=== PATIENT | male | born 1985 | race Hispanic/Latino ===

== ENCOUNTER 2022-04-13 14:52 | Emergency (ER) | payer SELFPAY ==
[2022-04-13 15:18] LABS: Absolute Lymphocytes (CBC) 1.2 K/uL (0.7-4.9); Lymphocytes % 16.4 % (15.3-44.8); MCV 87.4 fL (80-100); MPV 9.2 fL (7.6-11.3); RBC Red Blood Cell Count 4.57 M/uL (4.33-5.43)
--- NOTE | 2022-04-13 15:18 | RAD REPORT ---
EXAM DESCRIPTION: CT - CTHCSPWOC - 04/13/2022 3:08 pm CLINICAL HISTORY: Trauma, head and neck injury. syncope vs seizure, head injury COMPARISON: No comparisons TECHNIQUE: Axial 5 mm thick images of the head were obtained. Axial 2 mm thick images of the cervical spine were obtained with sagittal and coronal reconstruction images generated and reviewed. All CT scans are performed using dose optimization technique as appropriate and may include automated exposure control or mA/KV adjustment according to patient size. FINDINGS: CT HEAD WITHOUT CONTRAST: No acute hemorrhage, hydrocephalus or extra-axial collection is identified.No areas of brain edema or midline shift. The paranasal sinuses and mastoids are clear.The calvarium is intact. CT CERVICAL SPINE WITHOUT CONTRAST: No fracture or subluxation.No prevertebral soft tissues swelling is identified. IMPRESSION: No acute intracranial or cervical spine findings.
[2022-04-13 15:29] LABS: Protime INR 1.12
[2022-04-13 15:48] LABS: Albumin 3.7 g/dL (3.4-5.0); Bilirubin Direct 0.1 mg/dL (0-0.2); Bilirubin Total 0.6 mg/dL (0.2-1.0); Magnesium 2.3 mg/dL (1.8-2.4); Potassium 3.5 mmol/L (3.5-5.1); Protein, Total 7.1 g/dL (6.4-8.2)
--- NOTE | 2022-04-13 17:35 | EDPHYS ---
Physician Documentation [facility] Name: Henry Herman Age: 36 yrs Sex: Male : 1985 Arrival Date: 04/13/2022 Time: 14:53 Bed 3 Private MD: ED Physician Enzo Adame HPI: 04/13 15:25 This 36 yrs old Male presents to ER via EMS with complaints of Syncope - rn possible seizure. 15:25 The patient has experienced syncope, became unresponsive. Onset: The symptoms/episode rn began/occurred just prior to arrival. Context: the episode(s) was witnessed, by co-worker(s), occurred at work, occurred while the patient was standing, Just prior to the episode the patient experienced dizziness. Associated injury: Head/face: laceration, pain. Historical: - Allergies: 14:57 No Known Allergies; ll1 - PMHx: 14:57 None; ll1 - PSHx: 14:57 None; ll1 - Immunization history:: Client reports receiving the 2nd dose of the Covid vaccine, Last tetanus immunization: up to date. - Social history:: Smoking status: Patient denies any tobacco usage or history of. - Family history:: not pertinent. - Hospitalizations: : No recent hospitalization is reported. ROS: 15:27 Constitutional: Negative for fever, chills, and weight loss, Eyes: Negative for injury, rn pain, redness, and discharge, Neck: Negative for injury, pain, and swelling, Cardiovascular: Negative for chest pain, palpitations, and edema, Respiratory: Negative for shortness of breath, cough, wheezing, and pleuritic chest pain, Abdomen/GI: Negative for abdominal pain, nausea, vomiting, diarrhea, and constipation, Back: Negative for injury and pain, MS/Extremity: Negative for injury and deformity, Skin: + laceration to scalp Neuro: Negative for headache, weakness, numbness, tingling Exam: 15:27 Constitutional: This is a well developed, well nourished patient who is awake, alert, rn and in no acute distress. Head/Face: + 3 cm superficial laceration and hematoma right posterior parietal region of scalp Eyes: Pupils equal round and reactive to light, extra-ocular motions intact. Lids and lashes normal. Conjunctiva and sclera are non-icteric and not injected. Cornea within normal limits. Periorbital areas with no swelling, redness, or edema. ENT: NO oral trauma or tongue injury Neck: NO midline cervical tenderness Chest/axilla: Normal chest wall appearance and motion. Nontender with no deformity. No lesions are appreciated. Cardiovascular: Regular rate and rhythm . No pulse deficits. Respiratory: No increased work of breathing, no retractions or nasal flaring. Abdomen/GI: Soft, non-tender Skin: Warm, dry MS/ Extremity: Pulses equal, no cyanosis. Neurovascular intact. Full, normal range of motion. Equal circumference. Neuro: Awake and alert, GCS 15, oriented to person, place, time, and situation. Cranial nerves II-XII grossly intact. Motor strength 5/5 in all extremities. Sensory grossly intact. Cerebellar exam normal. 15:47 ECG was reviewed by the Attending Physician. rn Vital Signs: 14:54 BP 148 / 97; Pulse 93; Resp 17; Temp 99.5(TE); Pulse Ox 98% on R/A; Pain 3/10; ll1 16:08 BP 148 / 92; Pulse 82; Resp 17; Pulse Ox 99% on R/A; ll1 18:00 BP 142 / 86; Pulse 85; Resp 16; Pulse Ox 95% on R/A; ll1 NIH Stroke Scale Scores: 14:54 NIHSS Score: 0 ll1 Laceration: 17:32 Wound Repair of 3cm ( 1.2in ) subcutaneous laceration to scalp. Distal rn neuro/vascular/tendon intact. Wound prep: Extensive cleansing by nurse, Wound irrigation by nurse, Wound explored extensively. Skin closed with 3 35W [place] using staple gun. Dressed with Kerlix. Patient tolerated well. MDM: 14:54 Patient medically screened. rn 17:32 Differential Diagnosis: cardiac arrhythmia, emotional response, idiopathic syncope, rn vasovagal episode, dehydration heat exhaustion. Data reviewed: vital signs, nurses notes, lab test result(s), EKG, radiologic studies, CT scan, and as a result, I will discharge patient. Counseling: I had a detailed discussion with the patient and/or guardian regarding: the historical points, exam findings, and any diagnostic results supporting the discharge/admit diagnosis, lab results, radiology results, the need for outpatient follow up, to return to the emergency department if symptoms worsen or persist or if there are any questions or concerns that arise at home. Response to treatment: the patient's symptoms have markedly improved after treatment, the patient's condition has returned to base line, the patient is now symptom free, patient is well hydrated. and as a result, I will discharge patient. Special discussion: Based on the patient's history, exam and DX evaluation, there is no indication for emergent intervention or inpatient TX. It is understood by the patient/guardian that if the SXs persist or worsen they need to return immediately for re-evaluation. I discussed with the patient/guardian in detail that at this point there is no indication for admission to the hospital. It is understood, however, that if the symptoms persist or worsen the patient needs to return immediately for re-evaluation. 04/13 14:56 Order name: Basic Metabolic Panel; Complete Time: 15:53 rn 04/13 14:56 Order name: CBC with Diff; Complete Time: 15:24 rn 04/13 14:56 Order name: CPK; Complete Time: 15:53 rn 04/13 14:56 Order name: Hepatic Function; Complete Time: 15:53 rn 04/13 14:56 Order name: Lipase; Complete Time: 15:53 rn 04/13 14:56 Order name: Magnesium; Complete Time: 15:53 rn 04/13 14:56 Order name: Protime (+inr); Complete Time: 15:53 rn 04/13 14:56 Order name: Ptt, Activated; Complete Time: 15:53 rn 04/13 14:56 Order name: CT Head C Spine; Complete Time: 15:24 rn 04/13 14:56 Order name: EKG; Complete Time: 14:57 rn 04/13 14:56 Order name: Cardiac monitoring; Complete Time: 15:34 rn 04/13 14:56 Order name: EKG - Nurse/Tech; Complete Time: 15:34 rn 04/13 14:56 Order name: IV Saline Lock; Complete Time: 15:34 rn 04/13 14:56 Order name: Labs collected and sent; Complete Time: 15:34 rn 04/13 14:56 Order name: O2 Per Protocol; Complete Time: 15:00 rn 04/13 14:56 Order name: O2 Sat Monitoring; Complete Time: 15:00 rn EC:47 Rate is 77 beats/min. Rhythm is regular. QRS Reading is Normal. UT interval is normal. QRS rn interval is normal. QT interval is normal. No Q waves. T waves are Normal. Clinical impression: NSR w/ Non-specific ST/T Changes. Interpreted by me. Reviewed by me. Administered Medications: 15:00 Drug: NS 0.9% 1000 ml Route: IV; Rate: 1000 ml; Site: right antecubital; ll1 16:07 Follow up: Response: No adverse reaction; IV Status: Completed infusion; IV Intake: ll1 1000ml Point of Care Testin:37 done by EMS ll1 Ranges: Critical Glucose Levels:Adult <50 mg/dl or >400 mg/dl <40 mg/dl or >180 mg/dl Disposition Summary: 04/13/22 17:34 Discharge Ordered Location: Home rn Problem: new rn Symptoms: have improved rn Condition: Stable rn Diagnosis - Syncope rn - Unspecified injury of head, initial encounter rn - Laceration with foreign body of scalp, initial encounter rn Followup: rn - With: Private Physician - When: 7 - 10 days - Reason: Staple/Suture removal Discharge Instructions: - Discharge Summary Sheet rn - Head Injury, Adult rn - Hematoma rn - Laceration Care, Adult rn Forms: - Medication Reconciliation Form rn - Thank You Letter rn - Antibiotic state attorney - Prescription Opioid Use rn NIH Stroke Scale - NIH Stroke Score Date: 04/13/2022 Time: 14:54 Total Score = 0 1a. Level of Consciousness (LOC) - 0(Alert) 1b. Level of Consciousness (LOC) (Month \T\ Age) - 0(Both) 1c. LOC Commands (Open \T\ Closes Eyes/[employer] Black Belt) - 0(Both) 2. Best Gaze (Lateral Gaze Paresis) - 0(Normal) 3. Visual Field Loss - 0(No visual loss) 4. Facial Palsy - 0(Normal) 5a. Left Arm: Motor (10-second hold) - 0(No drift) 5b. Right Arm: Motor (10-second hold) - 0(No drift) 6a. Left Leg: Motor (5-second hold - always test supine) - 0(No drift) 6b. Right Leg: Motor (5-second hold - always test supine) - 0(No drift) 7. Limb Ataxia (finger/nose \T\ heel/chinchilla - test with eyes open) - 0(Absent) 8. Sensory Loss (pinprick arms/legs/face) - 0(Normal) 9. Best Language: Aphasia (description/naming/reading) - 0(No aphasia) 10. Dysarthria (speech clarity - read or repeat words) - 0(Normal) 11. Extinction and Inattention (visual/tactile/auditory/spatial/personal) - 0(No abnormality) Initials: ll1 Signatures: Dispatcher [employer] Enzo Mulligan MD MD rn Lewis, Lynsay, RN RN ll1
--- NOTE | 2022-04-13 17:35 | ER ---
Nurse's Notes [facility] Name: Henry Herman Age: 36 yrs Sex: Male : 1985 Arrival Date: 04/13/2022 Time: 14:53 Bed 3 Private MD: Diagnosis: Syncope;Unspecified injury of head, initial encounter;Laceration with foreign body of scalp, initial encounter Presentation: 04/13 14:54 Chief complaint: Patient states: Remembers feeling dizzy before he passed out. EMS ll1 states: Found on ground upon EMS arrival, bleeding from head. Friends stated they saw him fall and start shaking for about 2 minutes. EMS stated he was A\T\Ox3, did not seem postictal. Was working outside on [place] when this happened. Hematoma and laceration to head. No history of seizures. 1 episode of N/V en route. Coronavirus screen: Client denies travel out of the [place] in the last 14 days. At this time, the client does not indicate any symptoms associated with coronavirus-19. Ebola Screen: Patient denies travel to an Ebola-affected area in the 21 days before illness onset. Initial Sepsis Screen: Does the patient meet any 2 criteria? HR > 90 bpm. No. Patient's initial sepsis screen is negative. Does the patient have a suspected source of infection? No. Patient's initial sepsis screen is negative. Risk Assessment: Do you want to hurt yourself or someone else? Patient reports no desire to harm self or others. Onset of symptoms was April 13, 2022. 14:54 Method Of Arrival: EMS ll1 14:54 Acuity: ROLF 2 ll1 Triage Assessment: 14:58 General: Appears uncomfortable, Behavior is calm, cooperative, appropriate for age. ll1 Pain: Denies pain. Neuro: Level of Consciousness is awake, alert, obeys commands, Oriented to person, place, time, situation, Crimping Press Operator are equal bilaterally Moves all extremities. Full function Speech is normal, Facial symmetry appears normal, Pupils are PERRLA, Reports dizziness, headache a syncopal episode. Derm: laceration and hematoma to back of head. Historical: - Allergies: 14:57 No Known Allergies; ll1 - PMHx: 14:57 None; ll1 - PSHx: 14:57 None; ll1 - Immunization history:: Client reports receiving the 2nd dose of the Covid vaccine, Last tetanus immunization: up to date. - Social history:: Smoking status: Patient denies any tobacco usage or history of. - Family history:: not pertinent. - Hospitalizations: : No recent hospitalization is reported. Screenin:07 Abuse screen: Denies threats or abuse. Nutritional screening: No deficits noted. ll1 Tuberculosis screening: No symptoms or risk factors identified. Fall Risk Fall in past 12 months (25 points). Secondary diagnosis (15 points) seizures, IV access (20 points). Total Sharma Fall Scale indicates High Risk Score (45 or more points). Fall prevention measures have been instituted. Side Rails Up X 2 Placed Close to Nursing Station Frequent Obs/Assessments Occuring As available patient and family educated on Fall Prevention Program and Strategies. Assessment: 15:45 Reassessment: No changes from previously documented assessment. Patient and/or family ll1 updated on plan of care and expected duration. Pain level reassessed. Patient is alert, oriented x 3, equal unlabored respirations, skin warm/dry/pink. 16:45 Reassessment: No changes from previously documented assessment. Patient and/or family ll1 updated on plan of care and expected duration. Pain level reassessed. Patient is alert, oriented x 3, equal unlabored respirations, skin warm/dry/pink. 18:00 Reassessment: No changes from previously documented assessment. Patient and/or family ll1 updated on plan of care and expected duration. Pain level reassessed. non adherent dressing to scalp secured with Kerlix wrap. Tolerated well. 18:00 Neuro: No deficits noted. Cardiovascular: Rhythm is regular. ll1 Vital Signs: 14:54 BP 148 / 97; Pulse 93; Resp 17; Temp 99.5(TE); Pulse Ox 98% on R/A; Pain 3/10; ll1 16:08 BP 148 / 92; Pulse 82; Resp 17; Pulse Ox 99% on R/A; ll1 18:00 BP 142 / 86; Pulse 85; Resp 16; Pulse Ox 95% on R/A; ll1 NIH Stroke Scale Scores: 14:54 NIHSS Score: 0 ll1 ED Course: 14:53 Patient arrived in ED. ll1 14:54 Enzo Adame MD is Attending Physician. rn 14:57 Triage completed. ll1 14:59 Richard Anderson, RN is Primary Nurse. ll1 14:59 Arm band placed on Patient placed in an exam room, on a stretcher. ll1 15:10 CT Head C Spine In Process Unspecified. EDMS 15:34 Inserted saline lock: 20 gauge in right antecubital area, using aseptic technique. ld1 Blood collected. 15:36 EKG done, by ED staff, reviewed by Enzo Adame MD. em1 16:06 Wound care: to laceration located on scalp was cleaned with with saline, Patient ll1 tolerated well. 16:07 Patient has correct armband on for positive identification. Bed in low position. Call ll1 light in reach. Side rails up X 1. Client placed on continuous cardiac and pulse oximetry monitoring. NIBP monitoring applied. monitoring analyst on. 17:00 Wound care: was cleaned with with saline. ll1 18:00 No provider procedures requiring assistance completed. IV discontinued, intact, ll1 bleeding controlled, No redness/swelling at site. Pressure dressing applied. Administered Medications: 15:00 Drug: NS 0.9% 1000 ml Route: IV; Rate: 1000 ml; Site: right antecubital; ll1 16:07 Follow up: Response: No adverse reaction; IV Status: Completed infusion; IV Intake: ll1 1000ml Medication: 18:37 VIS not applicable for this client. ll1 Point of Care Testin:37 done by EMS ll1 Ranges: Intake: 16:07 IV: 1000ml; Total: 1000ml. ll1 Output: 16:52 Urine: 350ml (Voided); Total: 350ml. ll1 Outcome: 17:34 Discharge ordered by . rn 18:02 Patient left the ED. ll1 18:02 Discharged to home ambulatory. ll1 18:02 Condition: stable 18:02 Discharge instructions given to patient, Instructed on discharge instructions, follow up and referral plans. Demonstrated understanding of instructions, follow-up care, wound care. NIH Stroke Scale - NIH Stroke Score Date: 04/13/2022 Time: 14:54 Total Score = 0 1a. Level of Consciousness (LOC) - 0(Alert) 1b. Level of Consciousness (LOC) (Month \T\ Age) - 0(Both) 1c. LOC Commands (Open \T\ Closes Eyes/Vice President Safety) - 0(Both) 2. Best Gaze (Lateral Gaze Paresis) - 0(Normal) 3. Visual Field Loss - 0(No visual loss) 4. Facial Palsy - 0(Normal) 5a. Left Arm: Motor (10-second hold) - 0(No drift) 5b. Right Arm: Motor (10-second hold) - 0(No drift) 6a. Left Leg: Motor (5-second hold - always test supine) - 0(No drift) 6b. Right Leg: Motor (5-second hold - always test supine) - 0(No drift) 7. Limb Ataxia (finger/nose \T\ heel/chinchilla - test with eyes open) - 0(Absent) 8. Sensory Loss (pinprick arms/legs/face) - 0(Normal) 9. Best Language: Aphasia (description/naming/reading) - 0(No aphasia) 10. Dysarthria (speech clarity - read or repeat words) - 0(Normal) 11. Extinction and Inattention (visual/tactile/auditory/spatial/personal) - 0(No abnormality) Initials: ll1 Signatures: Dispatcher [employer] EDEnzo Alexandre MD MD rn Martinez, Eric em1 Richard Anderson RN RN ll1 Gunjan Hong RN RN ld1
[2022-04-13 19:39] VITALS: TEMP 99.5
[2022-04-13 19:41] VITALS: BP 148/92; O2SAT 99
--- NOTE | 2022-04-17 14:38 | EKG ---
Test Date: 2022-04-13 Test Time: 15:21:04 Diploma Medical Assistant: SARAH MEASUREMENT RESULTS: Intervals: Rate: 77 NE: 166 QRSD: 90 QT: 382 QTc: 432 Darden: P: 55 NE: 166 QRS: 75 T: 54 INTERPRETIVE STATEMENTS: Sinus rhythm with sinus arrhythmia with occasional premature ventricular complexes Minimal voltage criteria for LVH, may be normal variant ST elevation, probably due to early repolarization Borderline ECG No previous ECG available for comparison Electronically Signed On 04-17-22 14:33:14 CDT by Reginald Dow
== END 2022-04-13 18:02 | disposition home or self-care (01) ==
LOC: ER 14:52
PROC: 0JQ00ZZ Repair Scalp Subcutaneous Tissue and Fascia, Open Approach (ICD-10-PCS; principal; 2022-04-13)
DX: S01.01XA Laceration without foreign body of scalp, initial encounter (principal); R55 Syncope and collapse; S09.90XA Unspecified injury of head, initial encounter
CPT/HCPCS: 36415; 70450; 72125; 80048; 80076; 82550; 83690; 83735; 85025; 85610; 85730; 93005; 96360; 99285

== ENCOUNTER 2022-04-23 18:53 | Emergency (ER) | payer SELFPAY ==
--- NOTE | 2022-04-23 20:19 | ER ---
Nurse's Notes [facility] Name: Henry Herman Age: 36 yrs Sex: Male : 1985 Arrival Date: 04/23/2022 Time: 18:53 Bed DIS1 Private MD: Diagnosis: Encounter for removal of sutures Presentation: 04/23 19:22 Chief complaint: Patient states: I have eric on my head since 04/13/22, I need them aa9 removed. Coronavirus screen: Vaccine status: Patient reports receiving the 2nd dose of the covid vaccine. Ebola Screen: No symptoms or risks identified at this time. Initial Sepsis Screen: Does the patient meet any 2 criteria? No. Patient's initial sepsis screen is negative. Does the patient have a suspected source of infection? No. Patient's initial sepsis screen is negative. Risk Assessment: Do you want to hurt yourself or someone else? Patient reports no desire to harm self or others. Onset of symptoms was April 23, 2022. 19:22 Method Of Arrival: Ambulatory aa9 19:22 Acuity: ROLF 4 aa9 Triage Assessment: 19:28 General: Appears comfortable, Behavior is calm, cooperative. Pain: Denies pain. aa9 Historical: - Allergies: 19:27 No Known Allergies; aa9 - Home Meds: 19:27 None [Active]; aa9 - PMHx: 19:27 None; aa9 - PSHx: 19:27 None; aa9 - Immunization history:: Client reports receiving the 2nd dose of the Covid vaccine. - Social history:: Smoking status: Patient denies any tobacco usage or history of. Screenin:28 Abuse screen: Denies threats or abuse. Denies injuries from another. Nutritional aa9 screening: No deficits noted. Tuberculosis screening: No symptoms or risk factors identified. Fall Risk None identified. Assessment: 20:24 Derm: eric to head, removed by provider. as6 Vital Signs: 19:22 BP 143 / 89; Pulse 76; Resp 16 S; Temp 98.7(O); Pulse Ox 100% on R/A; Weight 68.04 kg aa9 (R); Height 5 ft. 4 in. (162.56 cm) (R); Pain 0/10; 19:22 Body Mass Index 25.75 (68.04 kg, 162.56 cm) aa9 ED Course: 18:53 Patient arrived in ED. am2 18:55 Orlando Rebollar PA is PHCP. cp 18:55 Orlando Shelton MD is Attending Physician. cp 19:27 Triage completed. aa9 19:28 Arm band placed on. aa9 19:28 Patient has correct armband on for positive identification. aa9 20:18 Tej Ramirez, RN is Primary Nurse. as6 20:24 No provider procedures requiring assistance completed. Patient did not have IV access as6 during this emergency room visit. Administered Medications: No medications were administered Medication: 20:24 VIS not applicable for this client. as6 Outcome: 20:19 Discharge ordered by MD. cp 20:24 Discharged to home ambulatory. as6 20:24 Condition: stable 20:24 Discharge instructions given to patient, Instructed on discharge instructions, follow up and referral plans. Demonstrated understanding of instructions, follow-up care. 20:25 Patient left the ED. as6 Signatures: Orlando Rebollar PA PA cp Cleo Leon am2 Tej Ramirez, RN RN as6 Emy Amin, RN RN aa9
--- NOTE | 2022-04-23 20:19 | EDPHYS ---
Physician Documentation [facility] Name: Henry Herman Age: 36 yrs Sex: Male : 1985 Arrival Date: 04/23/2022 Time: 18:53 Bed DIS1 Private MD: TESS Physician Orlando Shelton HPI: 04/23 20:15 This 36 yrs old Male presents to ER via Ambulatory with complaints of Staple cp Removal. 20:15 The patient has eric on the right side of scalp. Previous treatment: The patient was cp initially treated on April 13, 2022, the care was rendered at [facility], Treatment type: The patient's original treatment included eric. Sutures/eric progress: The patient has no c/o's. The wound is well-healing with no redness, swelling, discharge, or dehiscence reported. Historical: - Allergies: 19:27 No Known Allergies; aa9 - Home Meds: 19:27 None [Active]; aa9 - PMHx: 19:27 None; aa9 - PSHx: 19:27 None; aa9 - Immunization history:: Client reports receiving the 2nd dose of the Covid vaccine. - Social history:: Smoking status: Patient denies any tobacco usage or history of. ROS: 20:16 Skin: Positive for staple right lateral scalp. cp 20:16 All other systems are negative. Exam: 20:16 Skin: Wound recheck: Staple laceration closure: the wound is healing well, the edges cp are well approximated, no evidence of dehiscence, no drainage, no erythema, no swelling, repaired laceration of right lateral scalp with [address] Vital Signs: 19:22 BP 143 / 89; Pulse 76; Resp 16 S; Temp 98.7(O); Pulse Ox 100% on R/A; Weight 68.04 kg aa9 (R); Height 5 ft. 4 in. (162.56 cm) (R); Pain 0/10; 19:22 Body Mass Index 25.75 (68.04 kg, 162.56 cm) aa9 Procedures: 20:17 Suture/Staple removal: Removed 3 eric, from right lateral scalp, site appears well cp healed, Patient tolerated well. MDM: 20:15 Patient medically screened. cp 20:19 Data reviewed: vital signs, nurses notes, and as a result, I will discharge patient. cp 20:19 Counseling: I had a detailed discussion with the patient and/or guardian regarding: the cp historical points, exam findings, and any diagnostic results supporting the discharge/admit diagnosis, to return to the emergency department if symptoms worsen or persist or if there are any questions or concerns that arise at home. Administered Medications: No medications were administered Disposition Summary: 04/23/22 20:19 Discharge Ordered Location: Home cp Problem: new cp Symptoms: have improved cp Condition: Stable cp Diagnosis - Encounter for removal of sutures cp Followup: cp - With: Private Physician - When: 1 - 2 days - Reason: Worsening of condition Discharge Instructions: - Discharge Summary Sheet cp - Suture Removal, Care After cp Forms: - Medication Reconciliation Form cp - Thank You Letter cp - Antibiotic Education cp - Prescription Opioid Use cp Signatures: Orlando Rebollar PA PA cp Emy Amin, RN RN aa9
[2022-04-23 22:04] VITALS: BP 143/89; TEMP 98.7; O2SAT 100
== END 2022-04-23 20:25 | disposition home or self-care (01) ==
LOC: ER 18:53
DX: Z48.02 Encounter for removal of sutures (principal)
CPT/HCPCS: 99281